=== PATIENT | female | born 1955 | race African-American/Black ===

== ENCOUNTER 2019-02-26 14:25 | Emergency (ER) | payer MEDICARE, BC ==
[~2019-02-26] VITALS: Ht 170.2 cm; Wt 90.7 kg
[2019-02-26 14:38] VITALS: BP 134/86
[2019-02-26] MEDS ORDERED: KETOROLAC TROMETH 60MG/2ML VIAL IM ONE (16:45)
== END 2019-02-26 16:51 | disposition home or self-care (01) ==
LOC: EDBD 14:25 → ER 14:31
DX: S46.911A Strain of unspecified muscle, fascia and tendon at shoulder and upper arm level, right arm, initial encounter (principal); S93.401A Sprain of unspecified ligament of right ankle, initial encounter; E78.5 Hyperlipidemia, unspecified; I10 Essential (primary) hypertension; Z88.1 Allergy status to other antibiotic agents; Z88.8 Allergy status to other drugs, medicaments and biological substances; W03.XXXA Other fall on same level due to collision with another person, initial encounter; Y93.89 Activity, other specified; Y92.481 Parking lot as the place of occurrence of the external cause; Y99.8 Other external cause status
CPT/HCPCS: 73030; 73610; 96372; 99283; J1885